=== PATIENT | female | born 1970 | race Caucasian/White ===

== ENCOUNTER 2017-05-25 11:17 | Outpatient (CLI) | payer MEDICARE, MEDICAID ==
--- NOTE | 2017-05-25 14:12 | RAD ---
LEFT HAND THREE VIEWS: History: Left hand pain. FINDINGS/IMPRESSION: No fracture, dislocation or bony destruction is identified. POS: [facility]
--- NOTE | 2017-05-25 14:15 | RAD ---
LEFT ELBOW FOUR VIEWS: History: Pain. FINDINGS: No fracture or malalignment. Mild degenerative change of the ulnar trochlear joint. There are calcifi cations along the common extensor tendon. IMPRESSION: Calcifications along the common extensor tendon can be seen with lateral epicondylitis. POS: [facility]
--- NOTE | 2017-05-25 14:15 | RAD ---
LEFT FOREARM TWO VIEWS: History: Pain. Comparison: None. FINDINGS: No fracture. No malalignment. Soft tissues are unremarkable. IMPRESSION: No fracture. POS: [facility]
== END 2017-05-25 11:18 | disposition home or self-care (01) ==
LOC: SCSRAD 11:17
PROVIDERS: ATTEND Nurse Practitioner Family
DX: M79.602 Pain in left arm (principal); M77.12 Lateral epicondylitis, left elbow

== ENCOUNTER 2018-05-03 14:49 | Outpatient (CLI) | payer MEDICARE, MEDICAID ==
--- NOTE | 2018-05-03 15:37 | RAD ---
RIGHT ELBOW 4 VIEWS: Date: 05/03/18 HISTORY: Right elbow pain. FINDINGS/IMPRESSION: Minimal degenerative changes are seen. No fracture, dislocation, or bony destruction is identified. POS: [facility]
== END 2018-05-03 14:50 | disposition home or self-care (01) ==
LOC: SCSRAD 14:49
PROVIDERS: ATTEND Nurse Practitioner Family
DX: M25.521 Pain in right elbow (principal); M19.021 Primary osteoarthritis, right elbow

== ENCOUNTER 2018-07-31 23:21 | Emergency (ER) | payer MEDICARE, MEDICAID ==
[2018-08-01 00:03] LABS: Bilirubin Small (Negative); Blood, Urine Negative (Negative); Clarity CLEAR (Clear); Glucose, Urine (Dipstick) Negative (Negative); Leukocyte Negative (Negative); Nitrite Negative (Negative); Protein, Urine (Dipstick) Trace mg/dL (Neg-Trace); Specific Gravity, Urine 1.031 (1.002-1.036)
[2018-08-01 00:12] LABS: Amphetamine Not Detected (NotDetected); Barbiturates Screen Not Detected (NotDetected); Benzodiazepine Screen Not Detected (NotDetected); Cocaine Metabolite Screen Not Detected (NotDetected); Medtox Reader # READER 1; Methadone Not Detected (NotDetected); Methamphetamine Not Detected (NotDetected); Opiate Screen Not Detected (NotDetected); Oxycodone Screen Not Detected (NotDetected); Phencyclidine (PCP) Not Detected (NotDetected); THC/Cannabinoid Screen Detected (NotDetected); Tricyclic Screen Not Detected (NotDetected)
[2018-08-01 00:13] LABS: Medtox Control Line Valid? VALID (VALID)
[2018-08-01 00:47] LABS: #Basophils 0.1 thou/uL (0.0-0.2); #Eosinphils 0.4 thou/uL (0.0-0.7); #Lymphocytes 3.4 thou/uL (1.20-3.40); #Monocytes 0.9 thou/uL (0.11-0.59); #Neutrophils 7.5 thou/uL (1.40-6.50); %Basophils 0.7 % (0.0-1.0); %Eosinophils 2.9 % (0.0-10.0); %Lymphocytes 27.5 % (21.0-51.0); %Monocytes 7.4 % (0.0-10.0); %Neutrophils 61.4 % (42.0-75.0); Mean Corpuscular HGB CONC 31.3 g/dL (32.0-36.0); Mean Corpuscular Hemoglobin 29.5 pg (27.0-31.0); Mean Corpuscular Volume 94.2 fL (78.0-98.0); Mean Platelet Volume 7.7 fL (7.4-10.4); Platelet Count 254 thou/uL (130-400); RBC Distribution Width 12.4 % (11.5-14.5); Red Blood Cell (RBC) Count 4.76 mill/uL (4.20-5.40); White Blood Cell (WBC) Count 12.2 thou/uL (4.8-10.8)
[2018-08-01 01:00] LABS: Acetaminophen Less than 6.0 mcg/mL (10.0-30.0); Alcohol Less than 10 mg/dL (Less than 10); Salicylate Less than 8.0 mg/dL (15.0-30.0)
[2018-08-01 01:02] LABS: ALT (SGPT) 9 U/L (8-55); AST (SGOT) 11 U/L (5-34); Albumin 3.8 g/dL (3.5-5.0); Alkaline Phosphatase 86 U/L (40-150); Anion Gap 11 mmol/L (10-20); BUN (Urea Nitrogen) 11 mg/dL (7.0-18.7); Bilirubin, Total 0.3 mg/dL (0.2-1.2); Calc. Creatinine Clearance 0 mL/min (70-130); Calcium 9.2 mg/dL (7.8-10.44); Carbon Dioxide 28 mmol/L (22-29); Chloride 103 mmol/L (98-107); Estimated GFR-MDRD 76; Glucose 106 mg/dL (70-105); Potassium 3.6 mmol/L (3.5-5.1); Protein, Total 6.8 g/dL (6.0-8.3); Sodium 138 mmol/L (136-145)
--- NOTE | 2018-08-01 06:42 | RAD ---
PORTABLE CHEST: HISTORY: Mental status change. FINDINGS: The lungs appear clear. No infiltrate. Heart size is upper normal. Vasculature is upper normal. IMPRESSION: No acute process apparent. POS: [facility]
--- NOTE | 2018-08-01 09:43 | CT ---
PRELIMINARY REPORT/[facility]/EMERGENTY AFTER-HOURS PROCEDURE CT Head Without Contrast EXAM DATE/TIME: 07/31/2018 11:57 PM CLINICAL HISTORY: 48 years old, female; Pain; Headache; Patient HX: Er 6; AMS; 48 f with concerns from family PT is for getful. Symptoms started today. TECHNIQUE: Axial computed tomography images of the head/brain without contrast. COMPARISON: No relevant prior studies available. FINDINGS: Brain: No brain edema. No intracranial hemorrhage. Ventricles: Normal. No ventriculomegaly. Bones/joints: Unremarkable. No acute fracture. Sinuses: Complete opacification of the right frontal sinus suggests sinusitis. Mastoid air cells: Visualized mastoid air cells are unremarkable. No mastoid effusion. Soft tissues: Unremarkable. IMPRESSION: 1. No acute brain findings. 2. Complete opacification of the right frontal sinus suggests sinusitis. Thank you for allowing us to participate in the care of your patient. Dictated and Authenticated by: Trevor Krishnan MD 08/01/2018 12:25 AM Central Time ([place] & [place]) FINAL REPORT EMERGENT AFTER HOURS CT BRAIN WITHOUT CONTRAST: FINDINGS/IMPRESSION: I agree with the findings and impression given in the preliminary report, per [facility] physician. No evidence of acute intracranial abnormality.
== END 2018-08-01 02:15 | disposition home or self-care (01) ==
LOC: ERS 23:21
DX: R41.0 Disorientation, unspecified (principal); E66.01 Morbid (severe) obesity due to excess calories; E03.9 Hypothyroidism, unspecified; F41.9 Anxiety disorder, unspecified; F32.9 Major depressive disorder, single episode, unspecified; Z79.899 Other long term (current) drug therapy
CPT/HCPCS: 36415; 70450; 71045; 80053; 80306; 80307; 81003; 84443; 84484; 85025

== ENCOUNTER 2018-09-05 15:29 | Outpatient (CLI) | payer MEDICARE, MEDICAID ==
--- NOTE | 2018-09-05 15:56 | RAD ---
FExam: Chest 2 view HISTORY:Cough Comparison: 03/12/2015 FINDINGS: Lungs: No masses or consolidation. Cardiac silhouette: Normal size Pulmonary vessels: Normal Pleural Spaces: Clear Pneumothorax: None Osseous abnormalities: None IMPRESSION: No acute cardiopulmonary process.
== END 2018-09-05 15:30 | disposition home or self-care (01) ==
LOC: BICRAD 15:29
PROVIDERS: ATTEND Physician Assistant
DX: R05 Cough (principal)
CPT/HCPCS: 71046

== ENCOUNTER 2019-01-02 14:49 | Outpatient (CLI) | payer MEDICARE, MEDICAID ==
--- NOTE | 2019-01-03 10:12 | MMO ---
Bilateral MAMMO Bilat Screen [facility]. CLINICAL HISTORY: Patient is 48 years old and is seen for screening. The patient has the following family history of breast cancer: paternal grandmother, malignant (generic). The patient has no personal history of cancer. VIEWS: The views performed were: bilateral craniocaudal and bilateral mediolateral oblique. FILMS COMPARED: The present examination has been compared to a prior imaging study performed at [facility] on 01/28/2015. This study has been interpreted with the assistance of computer-aided detection. MAMMOGRAM FINDINGS: There are scattered fibroglandular densities. There are no suspicious masses, suspicious calcifications, or new areas of architectural distortion. IMPRESSION: THERE IS NO MAMMOGRAPHIC EVIDENCE OF MALIGNANCY. A ROUTINE FOLLOW-UP MAMMOGRAM IN 1 YEAR IS RECOMMENDED. ACR BI-RADS Category 1 - Negative MAMMOGRAPHY NOTE: 1. A negative mammogram report should not delay a biopsy if a dominant of clinically suspicious mass is present. 2. Approximately 10% to 15% of breast cancers are not detected by mammography. 3. Adenosis and dense breasts may obscure an underlying neoplasm. Reported by: HARVINDER FIELDS MD Electonically Signed: [id number]
== END 2019-01-02 14:50 | disposition home or self-care (01) ==
LOC: SCSMAMMO 14:49
PROVIDERS: ATTEND Family Medicine
DX: Z12.31 Encounter for screening mammogram for malignant neoplasm of breast (principal)
CPT/HCPCS: 77067